=== PATIENT | male | born 1995 | race Caucasian/White ===

== ENCOUNTER 2016-05-22 17:06 | Outpatient (CLI) | payer BC ==
[~2016-05-22] VITALS: Ht 193 cm; Wt 77.3 kg
[2016-05-22 18:34] VITALS: BP 168/87; PULSE 85; TEMP 99
== END 2016-05-27 19:30 | disposition home or self-care (01) ==
LOC: COL.ER 17:06 → EUO 17:06 → EDSTATUS 17:46 → EUO 05-27 19:30
DX: J03.80 Acute tonsillitis due to other specified organisms (principal); Z79.2 Long term (current) use of antibiotics
CPT/HCPCS: J0295; J1100; J7120